=== PATIENT | female | born 1985 | race Caucasian/White ===

== ENCOUNTER 2017-12-04 17:36 | Emergency (ER) | payer SELFPAY ==
[~2017-12-04] VITALS: Ht 154.9 cm; Wt 69.2 kg
[2017-12-04 18:34] LABS: APPEARANCE SL.HAZY ((CLEAR)); BILIRUBIN NEGATIVE; BLOOD SMALL; COLOR YELLOW ((YELLOW)); GLUCOSE (STRIP) NEGATIVE; KETONES NEGATIVE; LEUKOCYTES MODERATE; NITRITE NEGATIVE; PROTEIN (STRIP) NEGATIVE; SPECIFIC GRAVITY 1.018 (1.000-1.030); UROBILINOGEN 0.2 MG/DL (0.2-1.0)
[2017-12-04 18:41] LABS: BACTERIA RARE /HPF; EPITHELIAL CELLS 2+ /HPF; MUCUS TRACE /LPF; RED BLOOD CELLS 0-5 /HPF (0-5)
[2017-12-04 19:03] LABS: BASOPHIL (%) 0.3 % (0-1); EOSINOPHIL (%) 1.6 % (0-5); EOSINOPHIL COUNT 0.1 K/uL (0-0.3); HEMATOCRIT 37.2 % (36.0-46.0); IMMATURE GRANULOCYTE (%) 0.3 % (0.0-0.7); LYMPHOCYTE (%) 39.3 % (15-42); MCH 32.6 PG (29.0-34.0); MCHC 34.9 G/DL (30.0-36.0); MCV 93.2 FL (83-99); MONOCYTE (%) 3.6 % (3-12); MONOCYTE COUNT 0.3 K/uL (0-0.8); NEUTROPHIL (%) 54.9 % (45-76); NEUTROPHIL COUNT 4.2 K/uL (1.8-6.4); PLATELET COUNT 188 K/uL (156-360); RBC DIS.WIDTH-CV 12.1 % (11.8-14.6); RBC DIS.WIDTH-SD 41.8 % (39-53); RED BLOOD COUNT 3.99 M/uL (3.80-5.20); WHITE BLOOD COUNT 7.6 K/uL (4.1-10.2)
[2017-12-04] MEDS ORDERED: ZOFRAN ODT4 MG PO (19:18)
[2017-12-04] MEDS ORDERED: KEFLEX500 MG PO (19:18)
[2017-12-04 19:25] LABS: ALBUMIN 4.4 g/dL (3.2-4.8)
[2017-12-04 19:26] LABS: CHLORIDE 109 mEq/L (99-109); POTASSIUM 4.3 mEq/L (3.7-5.4); SODIUM 141 mEq/L (136-147)
[2017-12-04 19:28] LABS: GLUCOSE 99 mg/dL (70-99)
[2017-12-04 19:30] LABS: TOTAL BILIRUBIN 1.2 mg/dL (0.0-1.0)
[2017-12-04 19:31] LABS: ALKALINE PHOSPHATASE 60 IU/L (3-129)
[2017-12-04 19:32] LABS: CREATININE 0.7 mg/dL (0.6-1.3); GFR ESTIMATE (CALCULATED) > 59 mL/min/
[2017-12-04 19:33] LABS: AST (GOT) 10 IU/L (2-34); QUANTITATIVE HCG < 4.0 MIU/ML; UREA NITROGEN (BUN) 16 mg/dL (9-23)
[2017-12-04 19:35] LABS: ALT (GPT) 14 IU/L (3-49)
[2017-12-04 19:57] VITALS: BP 121/83
[2017-12-04 20:27] LABS: LIPASE 43 U/L (1.0-51.0)
== END 2017-12-04 20:02 | disposition home or self-care (01) ==
LOC: EME 17:36
PROVIDERS: Nurse Practitioner Family
DX: N39.0 Urinary tract infection, site not specified (principal); R10.11 Right upper quadrant pain; R10.13 Epigastric pain; K80.20 Calculus of gallbladder without cholecystitis without obstruction; Z86.19 Personal history of other infectious and parasitic diseases; Z88.2 Allergy status to sulfonamides
CPT/HCPCS: 76705; 80053; 81003; 83690; 84702; 85025; 99281; 99284